=== PATIENT | female | born 2000 | race Caucasian/White ===

== ENCOUNTER 2024-10-28 09:15 | Outpatient (RCR) | payer OTHER, SELFPAY ==
--- NOTE | 2024-10-28 11:56 | PEDADOS ---
[facility] - [place] ADOS2 AUTISM ASSESSMENT Reason for Referral Danni Luna was referred for the following assessment, as part of a full case study evaluation, in order to determine whether he has the characteristics of an Autism Spectrum Disorder. Tracy Fenton NP indicated that further assessment with the Autism Diagnostic Observation Schedule (ADOS) 2 was necessary. This report encompasses the results from that assessment. Behavioral Observations Acknowledged Therapist: Looked Cooperation Level: Cooperative Engagement: Appropriate Followed Directions: Most Required Cueing: Minimal Affect: Varied Eye Contact: Appropriate & Modulate with Words Transitions: Did w/o Cues General Behavior Pattern: Consistent Behavioral Comments: Danni was a jose to meet this date. She demonstrated excellent attention, eye contact and good participation in conversation. Danni reported that she was a good reader but found out when she was a senior in high school, that she has a Math learning disability. She reported few friends when she was younger due to having different interest compared to others but she has good friends now. She further reported a diagnosis of bipolar, takes medication for anxiety and depression and has been in therapy at different times in her life. She is not currently in therapy due to needing to find someone she likes that also takes her insurance. Interpretation of Psycho-educational Assessment The Autism Diagnostic Observation Schedule (ADOS-2) was administered to Danni this day. The ADOS-2 is a semi-structured observation instrument used to assess social and communicative behaviors in children. This instrument includes a series of semi-structured tasks of high interest to children with Autism. It is important to remember that the ADOS-2 provides a measure of current functioning (what was seen during the evaluation). It should be considered as a piece of a comprehensive evaluation process and should never be used in isolation to determine an individual?s clinical diagnosis or eligibility for services. Language and Communication Skills Used Complex Sentences: Sometimes Varied Intonation: Sometimes Varied Volume: Sometimes Varied Rhythm/Rate: Sometimes Presence of Immediate Echolalia: Never Presence of Delayed Echolalia: Never Describes/Tells What Happened: Sometimes Asks Others Questions About Their Thoughts, Feelings, Experiences: Never Tells Others About His/Her Thoughts, Feelings, Experiences: Sometimes Presence of Stereotypical Phrases: Never Engages in Back/Forth Conversation: Always Uses Gestures to Aid in Communication: Sometimes Language and Communication Comments: Danni was observationally noted to present with fluent, complex, verbal communication ability. She indicated she has never been in speech therapy. She easily participated in conversation although did appear somewhat nervous as evidenced by shaky hands and eventually tearful for one task, when she felt put on the spot for creating a story activity. She was noted to be somewhat limited with gestures used in conversation. Social Interaction Appropriate Eye Contact: Always Changes in Gaze, Expressions, Gestures While Vocalizing: Sometimes Directs Facial Expressions to Others: Sometimes Integration of Gaze with Words or Gestures: Sometimes Shows Enjoyment During Activities: Sometimes Understands Relationships & His/Her Role: Sometimes Talks About Emotions: Sometimes Responds Appropriately to Others: Sometimes Engages in Social Exchanges (Chats/Comments): Sometimes Initiates Interaction with Others: Sometimes Demonstrates Empathy: Sometimes Demonstrates Responsibility for His/Her Actions: Sometimes Interactions are Comfortable: Sometimes Social Interaction Comments: Danni demonstrated an appropriate understanding of relationships and emotions. When asked about feeling angry she indicated when people are mean to other people for no reason. She understood most abstract concepts (in story and cartoon) and showed examples of insight into the nature of typical social relationships, including her own role in at least one. Namely, she stated she has realized she will talk over people since when she has an idea she has to get it out. She had difficulty with talking about dreams or plans for the future, stating I don't think that far a head. Restricted/Stereotyped Behavior Unusual Interest in Toys/People/Topics: Never Hand & Finger Movements: Never Self Injurious Behaviors: Never Compulsive/Rituals: Never Repetitive Interest/Behaviors: Sometimes Restricted/Stereotyped Behavior Comments: In terms of sensory processing, no obvious sensory seeking or avoiding behaviors were noted. Danni was able to sit throughout this hour long assessment (no fidgeting, no sniffing, repetitive touching or feeling of textures). For an initial puzzle task she did indicate that it bothered her that the pieces were not the same color and when time was provided to wait on her response (to ask for more pieces), she seemed to get a little anxious but did eventually point to and request for more pieces. Overall, aDnni appeared a little nervous about today's assessment. For the final task when she became teary, the task was to create a story using random items from a bag. She seemed to have some anxiety of about having correct responses which was a good demonstration in that she is aware of social environment and cares what others are thinking about her response/s. Abnormal Behavior Overactive: Never Agitated: Never Negative/Disruptive Behavior: Never Anxious: Always Abnormal Behavior Comments: Danni indicated she takes medication for anxiety. On this assessment, scores are obtained for Communication, Reciprocal Social Interaction, Imagination/Creativity, and Stereotyped Behaviors and Restricted Interest. Scores from the ADOS-2 must be interpreted in the context of all of the available assessment information. Danni?s score corresponds to ADOS2-2 classification of Non-Spectrum Disorder. Summary/Recommendations Administration this date of ADOS-2 indicated the following: Communication Total = 2 Social Interaction Total = 2 Communication + Social Interaction Total = 4 Imagination/Creativity = 1 Stereotyped Behaviors and Restricted Interest Total = 2 ADOS-2 Classification = Non-Spectrum Evaluation today indicated Dnani is not demonstrating symptoms consistent with Autism. The following recommendations are offered to help foster success in the areas of patient's home and educational programs. 1.? Danni may benefit from ongoing counseling to help address reported anxiety and depression. Talking through any challenges with relationships may be helpful. 2. Patient and physician may want to consider evaluation by developmental hall cleaner should they feel more information is needed outside of today's results. Danni was noted to have small hands and be of short stature (may potentially consider genetic testing). 3. Visual supports may be helpful in a variety of ways. Use of a discharge planner/calendar could help to know what to expect (may help to reduce anxiety). Visual schedules can allow for understanding of time limits and tasks completion (provide list/s when possible). Social stories can provide specific dialogue that may be helpful in being able to respond appropriately in unfamiliar or uncomfortable social situations (Ex. When you are mad/upset/embarrassed... you could say...).? Talk through expectations and any changes that may occur and provide visual supports when possible.
== END 2025-01-26 23:59 | disposition home or self-care (01) ==
LOC: ANHPEDST 09:15
DX: Z13.41 Encounter for autism screening (principal); F90.2 Attention-deficit hyperactivity disorder, combined type
CPT/HCPCS: 96112; 96113